=== PATIENT | female | born 1935 | race Two or more races ===

== ENCOUNTER 2022-09-22 19:04 | Inpatient (IN) | payer OTHER ==
[~2022-09-22] VITALS: Ht 157.5 cm; Wt 90.7 kg
--- NOTE | 2022-09-22 19:42 | NUR ---
PACIENTE ALERTA Y ORIENTADA X3. SE RECIBE DE AMBULANCIA. FAMILIAR REFIERE FATIGA Y EDEMA EN LOS PIES
--- NOTE | 2022-09-22 19:42 | NUR ---
SE PASA PACIENTE A HANDY ANALIA #3 DE CRITICO. SE CONECTA A MONITOR CARDIACO Y OXIMETRIA DE PULSO. SE CANALIZA EN GABOO ANTIONETTE #18 Y #22. SE CHRIS MUESTRAS DE LABORATORIO BAJAO MEDIDAS ASEPTICAS Y SE COLOCA EVANS A GRAVEDAD PRESENTANDO ORINA AMARILLA INTENSA. SE REALIZA EKG Y SE PRESENTA AL DR. OBRIEN
[2022-09-22] MEDS ORDERED: SYNTHROID75 MCG PO (19:48)
[2022-09-22] MEDS ORDERED: ESTAZOLAM2 MG PO (19:48)
[2022-09-22] MEDS ORDERED: BUMETANIDE0.5 MG PO (19:49)
[2022-09-22] MEDS ORDERED: AVAPRO150 MG PO (19:49)
[2022-09-22] MEDS ORDERED: ALPRAZOLAM XR0.5 MG PO (19:49)
--- NOTE | 2022-09-22 23:42 | NUR ---
SE OBSERVA PTE TAQUIPNEICA, SE KO S/V, SE MIDE BP MANUAL 90/48MMHG. SE NOTIFICA A DR.RAMOS EL PAYAL KHOURY BPAP. SE NOTIFICA A RUDI WILKES.
== END 2022-10-01 04:04 | disposition expired | DRG 871 ==
LOC: ER 19:04 → ICU-2 23:50 → ICU 09-26 21:53
PROVIDERS: ADMIT Internal Medicine; ATTEND Internal Medicine
PROC: 5A09457 Assistance with Respiratory Ventilation, 24-96 Consecutive Hours, Continuous Positive Airway Pressure (ICD-10-PCS; 2022-09-22)
PROC: BW24ZZZ Computerized Tomography (CT Scan) of Chest and Abdomen (ICD-10-PCS; 2022-09-22)
PROC: B24BYZZ Ultrasonography of Heart with Aorta using Other Contrast (ICD-10-PCS; 2022-09-22)
PROC: 02HV33Z Insertion of Infusion Device into Superior Vena Cava, Percutaneous Approach (ICD-10-PCS; 2022-09-23)
PROC: B54DZZZ Ultrasonography of Bilateral Lower Extremity Veins (ICD-10-PCS; 2022-09-23)
PROC: 5A1945Z Respiratory Ventilation, 24-96 Consecutive Hours (ICD-10-PCS; principal; 2022-09-27)
PROC: 0BH17EZ Insertion of Endotracheal Airway into Trachea, Via Natural or Artificial Opening (ICD-10-PCS; 2022-09-27)
PROC: 30243N1 Transfusion of Nonautologous Red Blood Cells into Central Vein, Percutaneous Approach (ICD-10-PCS; 2022-09-27)
PROC: 3E0F7GC Introduction of Other Therapeutic Substance into Respiratory Tract, Via Natural or Artificial Opening (ICD-10-PCS; 2022-09-28)
DX: A41.1 Sepsis due to other specified staphylococcus (principal); I21.A1 Myocardial infarction type 2; J15.29 Pneumonia due to other staphylococcus; J96.01 Acute respiratory failure with hypoxia; R65.21 Severe sepsis with septic shock; N17.8 Other acute kidney failure; J90 Pleural effusion, not elsewhere classified; I82.4Z2 Acute embolism and thrombosis of unspecified deep veins of left distal lower extremity; B37.49 Other urogenital candidiasis; N04.9 Nephrotic syndrome with unspecified morphologic changes; I13.0 Hypertensive heart and chronic kidney disease with heart failure and stage 1 through stage 4 chronic kidney disease, or unspecified chronic kidney disease; U09.9 Post COVID-19 condition, unspecified; Z66 Do not resuscitate; D64.9 Anemia, unspecified; I48.91 Unspecified atrial fibrillation; I50.812 Chronic right heart failure; I27.29 Other secondary pulmonary hypertension; N18.9 Chronic kidney disease, unspecified; M32.9 Systemic lupus erythematosus, unspecified; E66.9 Obesity, unspecified; Z68.36 Body mass index [BMI] 36.0-36.9, adult